=== PATIENT | male | born 1940 | race Caucasian/White ===

== ENCOUNTER 2022-12-29 21:40 | Inpatient (IN) | payer MEDICARE, OTHER ==
[2022-12-29 22:20] LABS: #Monocytes 1.4 thou/uL (0.11-0.59); #Neutrophils 13.4 thou/uL (1.40-6.50); %Basophils 0.3 % (0.0-1.0); %Eosinophils 0.2 % (0.0-10.0); %Monocytes 8.9 % (0.0-10.0); %Neutrophils 86.9 % (42.0-75.0); Hemoglobin 13.3 g/dL (14.0-18.0); Mean Corpuscular HGB CONC 34.6 g/dL (32.0-36.0); Mean Corpuscular Hemoglobin 31.3 pg (27.0-31.0); Mean Corpuscular Volume 90.4 fl (78.0-98.0); Mean Platelet Volume 9.8 fL (7.4-10.4); Platelet Count 218 10x3/uL (130-400); RBC Distribution Width 13.6 % (11.5-14.5); Red Blood Cell (RBC) Count 4.25 mill/uL (4.70-6.10); White Blood Cell (WBC) Count 15.4 10x3/uL (4.8-10.8)
[2022-12-29 22:47] LABS: ALT (SGPT) 24 U/L (8-55); AST (SGOT) 22 U/L (5-34); Albumin 3.9 g/dL (3.4-4.8); Alkaline Phosphatase 60 U/L (40-110); Anion Gap 14 mmol/L (10-20); BUN (Urea Nitrogen) 15 mg/dL (8.4-25.7); Bilirubin, Total 0.7 mg/dL (0.2-1.2); Calc. Creatinine Clearance 0 mL/min (70-130); Calcium 9.2 mg/dL (7.8-10.44); Carbon Dioxide 20 mmol/L (23-31); Chloride 103 mmol/L (98-107); Estimated GFR 60; Glucose 128 mg/dL (83-110); Potassium 4.1 mmol/L (3.5-5.1); Protein, Total 6.9 g/dL (5.8-8.1); Sodium 133 mmol/L (136-145)
[2022-12-29] MEDS ORDERED: cefTRIAXone (ROCEPHIN) 2 GM VIAL ONE (23:34)
[2022-12-29 23:35] LABS: Bacteria/HPF None Seen HPF (None Seen); Bilirubin Negative (Negative); Blood, Urine Negative (Negative); CAUTI Indications for Culture Pelvic or flank pain; Clarity Clear (Clear); Glucose, Urine (Dipstick) Normal (Negative); Ketone, Urine Negative (Negative); Leukocyte 25 Leu/uL (Negative); Nitrite Negative (Negative); Protein, Urine (Dipstick) Negative (Neg-Trace); RBC/HPF 0-3 HPF (0-3); Specific Gravity, Urine 1.014 (1.002-1.036); Squamous Epithelial None Seen HPF (0-3); Urobilinogen Normal mg/dL (Less than 2)
[2022-12-29 23:49] LABS: Urine Culture Reflex No No
[2022-12-30 00:59] LABS: SARS-CoV-2 NAA Rapid Test Not Detected (NotDetected)
[2022-12-30] MEDS ORDERED: Ondansetron PF 4 MG/2 ML Vial IVP PRN (01:42)
[2022-12-30] MEDS ORDERED: Ondansetron ODT 4 MG TAB PO PRN (01:42)
[2022-12-30] MEDS ORDERED: Sodium Chloride 0.9% 1,000 ML IV SCH ×2 (02:15→10:00)
[2022-12-30 03:39] VITALS: BMI 45.5
[2022-12-30 04:44] LABS: #Basophils 0.1 thou/uL (0.0-0.2); #Monocytes 1.2 thou/uL (0.11-0.59); %Basophils 0.3 % (0.0-1.0); %Eosinophils 0.1 % (0.0-10.0); %Lymphocytes 5.8 % (21.0-51.0); %Monocytes 6.3 % (0.0-10.0); %Neutrophils 86.7 % (42.0-75.0); Hemoglobin 13.5 g/dL (14.0-18.0); Mean Corpuscular HGB CONC 33.7 g/dL (32.0-36.0); Mean Corpuscular Hemoglobin 30.9 pg (27.0-31.0); Mean Corpuscular Volume 91.8 fl (78.0-98.0); Mean Platelet Volume 10.2 fL (7.4-10.4); Platelet Count 237 10x3/uL (130-400); RBC Distribution Width 13.9 % (11.5-14.5); Red Blood Cell (RBC) Count 4.37 mill/uL (4.70-6.10); White Blood Cell (WBC) Count 19.5 10x3/uL (4.8-10.8)
[2022-12-30 05:05] LABS: Anion Gap 15 mmol/L (10-20); BUN (Urea Nitrogen) 14 mg/dL (8.4-25.7); CK (CPK) 153 U/L (30-200); Calc. Creatinine Clearance 75 mL/min (70-130); Calcium 8.9 mg/dL (7.8-10.44); Carbon Dioxide 20 mmol/L (23-31); Chloride 103 mmol/L (98-107); Estimated GFR 62; Glucose 118 mg/dL (83-110); Potassium 4.4 mmol/L (3.5-5.1); Sodium 134 mmol/L (136-145)
[2022-12-30] MEDS: Acetaminophen 325 MG TAB PO PRN ×2 (08:19→16:11)
[2022-12-30] MEDS: Famotidine 20 MG TAB PO SCH ×2 (08:19→20:53)
[2022-12-30] MEDS ORDERED: Iopamidol 370 76% 100 ML VIAL ONE (10:56)
[2022-12-30] MEDS ORDERED: Furosemide 40 MG/4 ML VIAL ONE ×2 (16:05→16:16)
[2022-12-30] MEDS ORDERED: Ipratropium/Albuterol 3 ML NEB NEB PRN (16:13)
[2022-12-30] MEDS ORDERED: Furosemide 40 MG/4 ML VIAL SLOW IVP SCH (16:15)
[2022-12-30] MEDS ORDERED: Ipratropium/Albuterol 3 ML NEB ONE (16:16)
[2022-12-30] MEDS ORDERED: hydrALAZINE 20 MG/ML VIAL SLOW IVP PRN (16:44)
[2022-12-30 16:46] LABS: Analyzer IN Cardio ER; Base Excess (BEa) -0.8 mEq/L (-2.0 to +3.0); CO2 Tension 27.7 mmHg (35.0-45.0); Calcium, Ionized (arterial) 1.08 mmol/L (1.12-1.30); Carboxyhemoglobin (COHb) 0.3 gm% (0.0-3.0); Hematocrit-ABG 43 % (42.0-52.0); Hemoglobin (Hb) 14.6 g/dL (14.0-18.0); Potassium - ABG Lab 3.91 mmol/L (3.70-5.30); pH, Arterial 7.498 (7.35-7.45)
[2022-12-30 16:48] LABS: Puncture Site RRA
[2022-12-30 16:49] LABS: ALV-art Gradient 105.015 mmHg (0-20)
[2022-12-30] MEDS ORDERED: Acetaminophen 500 MG TAB PO PRN (16:49)
[2022-12-30] MEDS: Azithromycin 500 MG in Sodium Chloride 0.9% 250 ML 250 ML IVPB SCH (17:39)
[2022-12-30 18:05] LABS: Troponin I 0.011 ng/mL (< 0.028)
[2022-12-30] MEDS: Atorvastatin Calcium 20 MG TAB PO SCH (20:53)
[2022-12-30] MEDS: Cefepime 2 GM in Sodium Chloride 0.9% 100 ML IVPB SCH (20:56)
[2022-12-30] MEDS: methylPREDNISolone Sod Succ 40 MG VIAL IVP SCH (20:56)
[2022-12-30 23:07] LABS: Troponin I 0.024 ng/mL (< 0.028)
[2022-12-30] MEDS ORDERED: cefTRIAXone\\ROCEPHIN 1 GM in Sodium Chloride 0.9% 100 ML IVPB SCH (23:59)
[2022-12-31] MEDS: Levothyroxine Sodium 75 MCG TAB PO SCH (05:23)
[2022-12-31] MEDS: Cholecalciferol 1,000 UNITS (25 MCG) TAB PO SCH (08:17)
[2022-12-31] MEDS: Hydrochlorothiazide 25 MG TAB PO SCH (08:17)
[2022-12-31] MEDS: Finasteride 5 MG TAB PO SCH (08:17)
[2022-12-31] MEDS: Tamsulosin HCl 0.4 MG CAP PO SCH (08:17)
[2022-12-31] MEDS: Famotidine 20 MG TAB PO SCH ×2 (08:17→21:13)
[2022-12-31] MEDS: CO Q-10 CAPSULE 100 MG PO SCH (08:17)
[2022-12-31] MEDS: Losartan 25 MG TAB PO SCH (08:17)
[2022-12-31] MEDS: Cefepime 2 GM in Sodium Chloride 0.9% 100 ML IVPB SCH ×2 (08:18→21:14)
[2022-12-31] MEDS: methylPREDNISolone Sod Succ 40 MG VIAL IVP SCH ×2 (08:18→21:13)
[2022-12-31] MEDS: Azithromycin 500 MG in Sodium Chloride 0.9% 250 ML 250 ML IVPB SCH (16:46)
[2022-12-31] MEDS: Atorvastatin Calcium 20 MG TAB PO SCH (21:13)
[2023-01-01 05:10] LABS: #Monocytes 0.6 thou/uL (0.11-0.59); #Neutrophils 10.5 thou/uL (1.40-6.50); %Basophils 0.2 % (0.0-1.0); %Lymphocytes 8.2 % (21.0-51.0); %Monocytes 4.6 % (0.0-10.0); %Neutrophils 86.2 % (42.0-75.0); Hemoglobin 13.6 g/dL (14.0-18.0); Mean Corpuscular HGB CONC 33.8 g/dL (32.0-36.0); Mean Corpuscular Hemoglobin 30.7 pg (27.0-31.0); Mean Corpuscular Volume 90.7 fl (78.0-98.0); Mean Platelet Volume 10.1 fL (7.4-10.4); Platelet Count 251 10x3/uL (130-400); RBC Distribution Width 13.4 % (11.5-14.5); Red Blood Cell (RBC) Count 4.43 mill/uL (4.70-6.10); White Blood Cell (WBC) Count 12.2 10x3/uL (4.8-10.8)
[2023-01-01] MEDS: Levothyroxine Sodium 75 MCG TAB PO SCH (05:23)
[2023-01-01 05:32] LABS: Anion Gap 10 mmol/L (10-20); BUN (Urea Nitrogen) 17 mg/dL (8.4-25.7); CRP (Inflammatory) 5.49 mg/dL (= or < 0.5); Calc. Creatinine Clearance 101 mL/min (70-130); Calcium 9.1 mg/dL (7.8-10.44); Carbon Dioxide 25 mmol/L (23-31); Chloride 104 mmol/L (98-107); Estimated GFR 86; Glucose 190 mg/dL (83-110); Magnesium 2.4 mg/dL (1.6-2.6); Potassium 4.1 mmol/L (3.5-5.1); Sodium 135 mmol/L (136-145)
[2023-01-01] MEDS: Tamsulosin HCl 0.4 MG CAP PO SCH (08:13)
[2023-01-01] MEDS: Famotidine 20 MG TAB PO SCH (08:13)
[2023-01-01] MEDS: Losartan 25 MG TAB PO SCH (08:14)
[2023-01-01] MEDS: Hydrochlorothiazide 25 MG TAB PO SCH (08:14)
[2023-01-01] MEDS: Finasteride 5 MG TAB PO SCH (08:14)
[2023-01-01] MEDS: Cefepime 2 GM in Sodium Chloride 0.9% 100 ML IVPB SCH (08:14)
[2023-01-01] MEDS: CO Q-10 CAPSULE 100 MG PO SCH (08:14)
[2023-01-01] MEDS: Cholecalciferol 1,000 UNITS (25 MCG) TAB PO SCH (08:14)
[2023-01-01] MEDS: methylPREDNISolone Sod Succ 40 MG VIAL IVP SCH (08:15)
[2023-01-01 12:52] VITALS: BP 168/77; TEMP 97.9
== END 2023-01-01 15:33 | disposition home or self-care (01) | DRG 871 ==
LOC: ERS 21:40 → 2NO 12-30 01:42 → OBSVTOIN 12-30 21:28
PROVIDERS: ADMIT Student in an Organized Health Care Education/Training Program; ATTEND Hospitalist
PROC: 4A033R1 Measurement of Arterial Saturation, Peripheral, Percutaneous Approach (ICD-10-PCS; principal; 2022-12-30)
PROC: 3E03329 Introduction of Other Anti-infective into Peripheral Vein, Percutaneous Approach (ICD-10-PCS; 2022-12-30)
DX: A41.50 Gram-negative sepsis, unspecified (principal); J15.6 Pneumonia due to other Gram-negative bacteria; J96.01 Acute respiratory failure with hypoxia; I10 Essential (primary) hypertension; I71.40 Abdominal aortic aneurysm, without rupture, unspecified; G62.9 Polyneuropathy, unspecified; Z20.822 Contact with and (suspected) exposure to COVID-19; I71.20 Thoracic aortic aneurysm, without rupture, unspecified; Z96.653 Presence of artificial knee joint, bilateral; Z90.49 Acquired absence of other specified parts of digestive tract; Z98.890 Other specified postprocedural states; Z88.1 Allergy status to other antibiotic agents; Z79.899 Other long term (current) drug therapy
CPT/HCPCS: 36415; 36416; 36600; 71045; 71275; 80048; 80053; 81001; 82550; 82805; 83605; 83735; 84145; 84484; 85025; 85379; 86140; 87040; 93005; 94640; 96361; 96365; 96375; G0378; J0456; J0692; J0696; J1940; J2920; J3490; J7050; J7620; Q9967

== ENCOUNTER 2023-01-03 14:48 | Inpatient (IN) | payer MEDICARE ==
[2023-01-03 15:28] LABS: Hemoglobin 15.6 g/dL (14.0-18.0); Mean Corpuscular HGB CONC 33.8 g/dL (32.0-36.0); Mean Corpuscular Hemoglobin 30.8 pg (27.0-31.0); Mean Corpuscular Volume 91.1 fl (78.0-98.0); Mean Platelet Volume 9.8 fL (7.4-10.4); Platelet Count 318 10x3/uL (130-400); RBC Distribution Width 13.7 % (11.5-14.5); Red Blood Cell (RBC) Count 5.07 mill/uL (4.70-6.10); White Blood Cell (WBC) Count 11.7 10x3/uL (4.8-10.8)
[2023-01-03 15:30] LABS: Delete Auto Diff?? YES; Manual Diff?? YES
[2023-01-03 15:54] LABS: Band 5 % (5-11); Burr Cells SLIGHT = 2-5 cells HPF (0-1); CellaVision Operator ID LAB.KB; Eosinophils 3 % (0-10); Lymphocytes 20 % (21-51); Monocytes 4 % (0-10); Neutrophil 59 % (42-75); Nucleated RBC (Manual Ct) 1 % (0); Ovalocytes SLIGHT = 2-5 cells HPF (0-1); Platelet Adequacy Comment Platelets Normal; Polychromasia SLIGHT = 2-3 cells HPF (0-2); Reactive Lymphocytes 9 % (0-10); Total Cell Count 100
[2023-01-03 16:37] LABS: Albumin 4.5 g/dL (3.4-4.8)
[2023-01-03 16:38] LABS: Chloride 102 mmol/L (98-107); Potassium 4.7 mmol/L (3.5-5.1); Sodium 138 mmol/L (136-145)
[2023-01-03 16:39] LABS: Calcium 10.3 mg/dL (7.8-10.44)
[2023-01-03 16:40] LABS: Globulin 3.1 g/dL (2.4-3.5); Glucose 82 mg/dL (83-110); Protein, Total 7.6 g/dL (5.8-8.1)
[2023-01-03 16:41] LABS: Anion Gap 17 mmol/L (10-20); Bilirubin, Total 0.5 mg/dL (0.2-1.2); Carbon Dioxide 24 mmol/L (23-31)
[2023-01-03 16:42] LABS: Alkaline Phosphatase 70 U/L (40-110)
[2023-01-03 16:43] LABS: Calc. Creatinine Clearance 0 mL/min (70-130); Estimated GFR 78
[2023-01-03 16:44] LABS: BUN (Urea Nitrogen) 19 mg/dL (8.4-25.7)
[2023-01-03 16:45] LABS: AST (SGOT) 22 U/L (5-34)
[2023-01-03 16:46] LABS: ALT (SGPT) 33 U/L (8-55)
[2023-01-03] MEDS ORDERED: Atropine Sulfate 1 mg/10 ml Syringe ONE (17:59)
[2023-01-03 19:30] LABS: Troponin I Less than 0.010 ng/mL (< 0.028)
[2023-01-03 21:16] VITALS: BMI 31.9
[2023-01-03 23:51] LABS: Troponin I 0.018 ng/mL (< 0.028)
[2023-01-04] MEDS ORDERED: Atropine Sulfate 1 mg/1 ml Vial IVP PRN (00:11)
[2023-01-04 05:18] LABS: Troponin I Less than 0.010 ng/mL (< 0.028)
[2023-01-04] MEDS: CO Q-10 CAPSULE 100 MG PO SCH (08:36)
[2023-01-04] MEDS: Cefdinir 300 MG CAP PO SCH ×2 (08:37→20:03)
[2023-01-04] MEDS: Losartan 25 MG TAB PO SCH (08:37)
[2023-01-04] MEDS: Aspirin Chewable 81 MG TAB PO SCH (08:37)
[2023-01-04] MEDS: Tamsulosin HCl 0.4 MG CAP PO SCH (08:37)
[2023-01-04] MEDS: Finasteride 5 MG TAB PO SCH (08:37)
[2023-01-04] MEDS: Atorvastatin Calcium 20 MG TAB PO SCH (20:03)
[2023-01-05 04:17] LABS: #Basophils 0.2 thou/uL (0.0-0.2); #Eosinphils 0.5 thou/uL (0.0-0.7); #Monocytes 0.8 thou/uL (0.11-0.59); #Neutrophils 7.3 thou/uL (1.40-6.50); %Basophils 1.4 % (0.0-1.0); %Eosinophils 4.1 % (0.0-10.0); %Lymphocytes 18.4 % (21.0-51.0); %Monocytes 7.1 % (0.0-10.0); %Neutrophils 63.5 % (42.0-75.0); Hemoglobin 14.9 g/dL (14.0-18.0); Mean Corpuscular HGB CONC 33.3 g/dL (32.0-36.0); Mean Corpuscular Hemoglobin 30.7 pg (27.0-31.0); Mean Corpuscular Volume 92.2 fl (78.0-98.0); Mean Platelet Volume 9.6 fL (7.4-10.4); Platelet Count 293 10x3/uL (130-400); RBC Distribution Width 13.7 % (11.5-14.5); Red Blood Cell (RBC) Count 4.86 mill/uL (4.70-6.10); White Blood Cell (WBC) Count 11.5 10x3/uL (4.8-10.8)
[2023-01-05 04:45] LABS: CellaVision Operator ID lab.abc; Platelet Adequacy Comment Platelets Normal; Polychromasia SLIGHT = 2-3 cells HPF (0-2); RBC Morphology Within Normal Limits
[2023-01-05 04:54] LABS: Anion Gap 11 mmol/L (10-20); BUN (Urea Nitrogen) 16 mg/dL (8.4-25.7); Calc. Creatinine Clearance 94 mL/min (70-130); Carbon Dioxide 25 mmol/L (23-31); Chloride 105 mmol/L (98-107); Estimated GFR 86; Glucose 119 mg/dL (83-110); Sodium 137 mmol/L (136-145)
[2023-01-05 05:09] LABS: Free T4 (Free Thyroxine) 1.15 ng/dL (0.70-1.48); Thyroid Stimulating Hormone 3.4232 uIU/mL (0.35-4.94)
[2023-01-05] MEDS: Levothyroxine Sodium 75 MCG TAB PO SCH (05:39)
[2023-01-05] MEDS: Tamsulosin HCl 0.4 MG CAP PO SCH (08:52)
[2023-01-05] MEDS: Cefdinir 300 MG CAP PO SCH ×2 (08:52→20:14)
[2023-01-05] MEDS: CO Q-10 CAPSULE 100 MG PO SCH (08:52)
[2023-01-05] MEDS: Losartan 25 MG TAB PO SCH (08:52)
[2023-01-05] MEDS: Finasteride 5 MG TAB PO SCH (08:52)
[2023-01-05] MEDS: Aspirin Chewable 81 MG TAB PO SCH (08:53)
[2023-01-05] MEDS ORDERED: Digoxin 0.25 MG TAB PO SCH (16:00)
[2023-01-05] MEDS: Atorvastatin Calcium 20 MG TAB PO SCH (20:14)
[2023-01-06 04:39] LABS: #Basophils 0.1 thou/uL (0.0-0.2); #Eosinphils 0.5 thou/uL (0.0-0.7); %Basophils 1.1 % (0.0-1.0); %Eosinophils 3.9 % (0.0-10.0); %Lymphocytes 17.5 % (21.0-51.0); %Monocytes 7.9 % (0.0-10.0); %Neutrophils 65.8 % (42.0-75.0); Hemoglobin 13.9 g/dL (14.0-18.0); Mean Corpuscular HGB CONC 32.8 g/dL (32.0-36.0); Mean Corpuscular Hemoglobin 30.4 pg (27.0-31.0); Mean Corpuscular Volume 92.8 fl (78.0-98.0); Mean Platelet Volume 9.6 fL (7.4-10.4); Platelet Count 313 10x3/uL (130-400); RBC Distribution Width 13.6 % (11.5-14.5); Red Blood Cell (RBC) Count 4.57 mill/uL (4.70-6.10); White Blood Cell (WBC) Count 12.1 10x3/uL (4.8-10.8)
[2023-01-06 05:04] LABS: Anion Gap 10 mmol/L (10-20); BUN (Urea Nitrogen) 14 mg/dL (8.4-25.7); Calc. Creatinine Clearance 91 mL/min (70-130); Calcium 8.9 mg/dL (7.8-10.44); Carbon Dioxide 24 mmol/L (23-31); Chloride 105 mmol/L (98-107); Estimated GFR 83; Glucose 113 mg/dL (83-110); Potassium 4.1 mmol/L (3.5-5.1); Sodium 135 mmol/L (136-145)
[2023-01-06] MEDS: Levothyroxine Sodium 75 MCG TAB PO SCH (06:08)
[2023-01-06] MEDS: Losartan 25 MG TAB PO SCH (09:28)
[2023-01-06] MEDS: Cefdinir 300 MG CAP PO SCH ×2 (09:28→20:21)
[2023-01-06] MEDS: Tamsulosin HCl 0.4 MG CAP PO SCH (09:29)
[2023-01-06] MEDS: Digoxin 0.25 MG TAB PO SCH (09:29)
[2023-01-06] MEDS: CO Q-10 CAPSULE 100 MG PO SCH (09:30)
[2023-01-06] MEDS: Aspirin Chewable 81 MG TAB PO SCH (09:30)
[2023-01-06] MEDS: Finasteride 5 MG TAB PO SCH (09:30)
[2023-01-06] MEDS: Atorvastatin Calcium 20 MG TAB PO SCH (20:21)
[2023-01-07] MEDS: Levothyroxine Sodium 75 MCG TAB PO SCH (05:21)
[2023-01-07] MEDS: Cefdinir 300 MG CAP PO SCH (08:30)
[2023-01-07] MEDS: Aspirin Chewable 81 MG TAB PO SCH (08:30)
[2023-01-07] MEDS: Digoxin 0.25 MG TAB PO SCH (08:30)
[2023-01-07] MEDS: Losartan 25 MG TAB PO SCH (08:31)
[2023-01-07] MEDS: Tamsulosin HCl 0.4 MG CAP PO SCH (08:31)
[2023-01-07] MEDS: Finasteride 5 MG TAB PO SCH (08:31)
[2023-01-07] MEDS: CO Q-10 CAPSULE 100 MG PO SCH (08:31)
[2023-01-07 12:06] VITALS: BP 149/73; TEMP 98.6
== END 2023-01-07 14:50 | disposition home or self-care (01) | DRG 310 ==
LOC: ERS 14:48 → 2SW 18:09 → OBSVTOIN 01-04 17:54
PROVIDERS: ADMIT Internal Medicine; ATTEND Family Medicine
DX: R00.1 Bradycardia, unspecified (principal); I47.1 Supraventricular tachycardia; I10 Essential (primary) hypertension; E78.5 Hyperlipidemia, unspecified; E03.9 Hypothyroidism, unspecified; I95.9 Hypotension, unspecified; N40.0 Benign prostatic hyperplasia without lower urinary tract symptoms; R42 Dizziness and giddiness; Z88.1 Allergy status to other antibiotic agents; Z79.890 Hormone replacement therapy; Z79.899 Other long term (current) drug therapy
CPT/HCPCS: 36415; 71045; 80048; 80053; 80061; 80162; 83735; 84439; 84443; 84481; 84484; 85025; 93005; 93306; 94760; 96372; 96374; G0378; J0461; J1650

== ENCOUNTER 2023-01-22 18:01 | Inpatient (IN) | payer MEDICARE ==
[2023-01-22 18:51] LABS: #Basophils 0.1 thou/uL (0.0-0.2); #Eosinphils 0.1 thou/uL (0.0-0.7); #Monocytes 1.5 thou/uL (0.11-0.59); #Neutrophils 10.3 thou/uL (1.40-6.50); %Basophils 0.5 % (0.0-1.0); %Lymphocytes 14.5 % (21.0-51.0); %Monocytes 10.7 % (0.0-10.0); %Neutrophils 72.9 % (42.0-75.0); Hematocrit 39.4 % (42.0-52.0); Hemoglobin 13.1 g/dL (14.0-18.0); Mean Corpuscular HGB CONC 33.2 g/dL (32.0-36.0); Mean Corpuscular Hemoglobin 30.6 pg (27.0-31.0); Mean Corpuscular Volume 92.1 fl (78.0-98.0); Mean Platelet Volume 10.7 fL (7.4-10.4); Platelet Count 227 10x3/uL (130-400); RBC Distribution Width 14.1 % (11.5-14.5); Red Blood Cell (RBC) Count 4.28 mill/uL (4.70-6.10); White Blood Cell (WBC) Count 14.2 10x3/uL (4.8-10.8)
[2023-01-22 19:16] LABS: ALT (SGPT) 16 U/L (8-55); AST (SGOT) 18 U/L (5-34); Alkaline Phosphatase 68 U/L (40-110); Anion Gap 14 mmol/L (10-20); BUN (Urea Nitrogen) 18 mg/dL (8.4-25.7); Bilirubin, Total 0.8 mg/dL (0.2-1.2); Calc. Creatinine Clearance 0 mL/min (70-130); Calcium 9.2 mg/dL (7.8-10.44); Carbon Dioxide 22 mmol/L (23-31); Chloride 103 mmol/L (98-107); Estimated GFR 67; Globulin 3.3 g/dL (2.4-3.5); Glucose 96 mg/dL (83-110); Lipase 18 U/L (8-78); Magnesium 2.2 mg/dL (1.6-2.6); Potassium 3.7 mmol/L (3.5-5.1); Protein, Total 7.3 g/dL (5.8-8.1); Sodium 135 mmol/L (136-145)
[2023-01-22 19:19] LABS: Troponin I 0.033 ng/mL (< 0.028)
[2023-01-22 19:44] LABS: Bacteria/HPF 2+ HPF (None Seen); Bilirubin Negative (Negative); Blood, Urine Negative (Negative); CAUTI Indications for Culture Alt mental st,lethar; Clarity Turbid (Clear); Glucose, Urine (Dipstick) Normal (Negative); Ketone, Urine Negative (Negative); Leukocyte 500 Leu/uL (Negative); Nitrite 2+ (Negative); Protein, Urine (Dipstick) Negative (Neg-Trace); RBC/HPF 0-3 HPF (0-3); Specific Gravity, Urine 1.021 (1.002-1.036); Squamous Epithelial None Seen HPF (0-3); Urobilinogen Normal mg/dL (Less than 2); WBC/HPF Greater than 50 HPF (0-3); pH, Urine 5.5 (5.0-9.0)
[2023-01-22 19:46] LABS: Urine Culture Reflex Yes Yes
[2023-01-22] MEDS ORDERED: cefTRIAXone (ROCEPHIN) 1 GM VIAL ONE ×2 (21:25→21:35)
[2023-01-22 21:26] LABS: Troponin I Less than 0.010 ng/mL (< 0.028)
[2023-01-22] MEDS ORDERED: Senokot S 8.6-50 MG TAB PO PRN (22:34)
[2023-01-22] MEDS ORDERED: Calcium Carbonate 500 MG ChewTAB PO PRN (22:34)
[2023-01-22] MEDS ORDERED: Ondansetron PF 4 MG/2 ML Vial IVP PRN (22:34)
[2023-01-22] MEDS ORDERED: Ondansetron ODT 4 MG TAB PO PRN (22:34)
[2023-01-22] MEDS ORDERED: Acetaminophen 325 MG TAB PO PRN (22:34)
[2023-01-22] MEDS ORDERED: Sodium Chloride 0.9% 1,000 ML IV SCH (23:45)
[2023-01-23 03:28] VITALS: BMI 33.0
[2023-01-23 04:50] LABS: #Basophils 0.1 thou/uL (0.0-0.2); #Eosinphils 0.4 thou/uL (0.0-0.7); #Monocytes 1.2 thou/uL (0.11-0.59); #Neutrophils 7.2 thou/uL (1.40-6.50); %Basophils 0.6 % (0.0-1.0); %Eosinophils 3.8 % (0.0-10.0); %Monocytes 11.4 % (0.0-10.0); %Neutrophils 68.8 % (42.0-75.0); Hematocrit 37.4 % (42.0-52.0); Hemoglobin 12.2 g/dL (14.0-18.0); Mean Corpuscular HGB CONC 32.6 g/dL (32.0-36.0); Mean Corpuscular Hemoglobin 30.7 pg (27.0-31.0); Mean Platelet Volume 10.5 fL (7.4-10.4); Platelet Count 198 10x3/uL (130-400); RBC Distribution Width 14.1 % (11.5-14.5); Red Blood Cell (RBC) Count 3.98 mill/uL (4.70-6.10); White Blood Cell (WBC) Count 10.4 10x3/uL (4.8-10.8)
[2023-01-23 07:03] LABS: Anion Gap 10 mmol/L (10-20); BUN (Urea Nitrogen) 15 mg/dL (8.4-25.7); Calc. Creatinine Clearance 90 mL/min (70-130); Calcium 8.4 mg/dL (7.8-10.44); Carbon Dioxide 24 mmol/L (23-31); Chloride 106 mmol/L (98-107); Estimated GFR 81; Glucose 130 mg/dL (83-110); Magnesium 2.2 mg/dL (1.6-2.6); Phosphorus 2.3 mg/dL (2.3-4.7); Potassium 3.4 mmol/L (3.5-5.1); Sodium 137 mmol/L (136-145)
[2023-01-23] MEDS: Saccharomyces boulardii 250 MG CAP PO SCH (09:08)
[2023-01-23] MEDS: Tamsulosin HCl 0.4 MG CAP PO SCH (09:08)
[2023-01-23] MEDS: Multivitamin W/ Minerals 1 TAB PO SCH (09:08)
[2023-01-23] MEDS: Losartan 25 MG TAB PO SCH (09:08)
[2023-01-23] MEDS: Cholecalciferol 1,000 UNITS (25 MCG) TAB PO SCH (09:08)
[2023-01-23] MEDS: CO Q-10 CAPSULE 100 MG PO SCH (09:08)
[2023-01-23] MEDS: Finasteride 5 MG TAB PO SCH (09:08)
[2023-01-23] MEDS: Digoxin 0.25 MG TAB PO SCH (09:09)
[2023-01-23] MEDS ORDERED: Levothyroxine Sodium 75 MCG TAB PO SCH (09:15)
[2023-01-23] MEDS ORDERED: Atorvastatin Calcium 20 MG TAB PO SCH (21:00)
[2023-01-23] MEDS: Aspirin Chewable 81 MG TAB PO SCH (21:05)
[2023-01-23] MEDS ORDERED: cefTRIAXone\\ROCEPHIN 1 GM in Sodium Chloride 0.9% 100 ML IVPB SCH (22:00)
[2023-01-24] MEDS ORDERED: Levothyroxine Sodium 75 MCG TAB PO SCH (06:00)
[2023-01-24 06:58] LABS: #Basophils 0.1 thou/uL (0.0-0.2); #Eosinphils 0.5 thou/uL (0.0-0.7); #Monocytes 0.9 thou/uL (0.11-0.59); #Neutrophils 3.7 thou/uL (1.40-6.50); %Eosinophils 7.8 % (0.0-10.0); %Lymphocytes 23.2 % (21.0-51.0); %Monocytes 13.5 % (0.0-10.0); %Neutrophils 54.1 % (42.0-75.0); Hemoglobin 13.1 g/dL (14.0-18.0); Mean Corpuscular HGB CONC 32.8 g/dL (32.0-36.0); Mean Corpuscular Hemoglobin 30.5 pg (27.0-31.0); Mean Corpuscular Volume 93.2 fl (78.0-98.0); Mean Platelet Volume 10.5 fL (7.4-10.4); Platelet Count 215 10x3/uL (130-400); RBC Distribution Width 13.9 % (11.5-14.5); Red Blood Cell (RBC) Count 4.29 mill/uL (4.70-6.10); White Blood Cell (WBC) Count 6.8 10x3/uL (4.8-10.8)
[2023-01-24 07:20] LABS: Anion Gap 11 mmol/L (10-20); BUN (Urea Nitrogen) 13 mg/dL (8.4-25.7); Calc. Creatinine Clearance 92 mL/min (70-130); Calcium 8.5 mg/dL (7.8-10.44); Carbon Dioxide 20 mmol/L (23-31); Chloride 107 mmol/L (98-107); Estimated GFR 83; Glucose 145 mg/dL (83-110); Potassium 3.6 mmol/L (3.5-5.1); Sodium 134 mmol/L (136-145)
[2023-01-24] MEDS: CO Q-10 CAPSULE 100 MG PO SCH (09:07)
[2023-01-24] MEDS: Multivitamin W/ Minerals 1 TAB PO SCH (09:07)
[2023-01-24] MEDS: Saccharomyces boulardii 250 MG CAP PO SCH (09:07)
[2023-01-24] MEDS: Tamsulosin HCl 0.4 MG CAP PO SCH (09:07)
[2023-01-24] MEDS: Cholecalciferol 1,000 UNITS (25 MCG) TAB PO SCH (09:07)
[2023-01-24] MEDS: Losartan 25 MG TAB PO SCH (09:08)
[2023-01-24] MEDS: Finasteride 5 MG TAB PO SCH (09:08)
[2023-01-24] MEDS: Digoxin 0.25 MG TAB PO SCH (09:08)
[2023-01-24 12:21] VITALS: BP 153/93; TEMP 98.2
== END 2023-01-24 14:31 | disposition home or self-care (01) | DRG 872 ==
LOC: ERS 18:01 → 2NO 22:32 → T4-A 01-23 16:14
PROVIDERS: ADMIT Student in an Organized Health Care Education/Training Program; ATTEND Family Medicine
DX: A41.51 Sepsis due to Escherichia coli [E. coli] (principal); N39.0 Urinary tract infection, site not specified; I50.32 Chronic diastolic (congestive) heart failure; I11.0 Hypertensive heart disease with heart failure; I71.40 Abdominal aortic aneurysm, without rupture, unspecified; G62.9 Polyneuropathy, unspecified; E78.5 Hyperlipidemia, unspecified; E03.9 Hypothyroidism, unspecified; N40.0 Benign prostatic hyperplasia without lower urinary tract symptoms; Z96.653 Presence of artificial knee joint, bilateral; Z88.1 Allergy status to other antibiotic agents; Z79.899 Other long term (current) drug therapy; Z98.890 Other specified postprocedural states; Z90.89 Acquired absence of other organs; Z80.9 Family history of malignant neoplasm, unspecified
CPT/HCPCS: 36415; 71045; 80048; 80053; 81001; 82550; 83605; 83690; 83735; 83880; 84100; 84484; 85025; 87040; 87077; 87086; 87186; 93005; 96365; J0696; J1650; J3490; J7050

== ENCOUNTER 2025-05-08 11:00 | Emergency (ER) | payer MEDICARE ==
[2025-05-08] MEDS ORDERED: Dexamethasone 10 MG/ML VIAL ONE (13:37)
== END 2025-05-08 13:51 | disposition home or self-care (01) ==
LOC: ERS 11:00
DX: M54.2 Cervicalgia (principal); M19.90 Unspecified osteoarthritis, unspecified site; M47.812 Spondylosis without myelopathy or radiculopathy, cervical region; I10 Essential (primary) hypertension; E03.9 Hypothyroidism, unspecified; E78.5 Hyperlipidemia, unspecified; Z79.899 Other long term (current) drug therapy; Z79.890 Hormone replacement therapy; Z79.82 Long term (current) use of aspirin
CPT/HCPCS: 72125; J1100; 96372